=== PATIENT | male | born 1990 | race Caucasian/White ===

== ENCOUNTER 2017-01-13 14:33 | Emergency (ER) | payer SELFPAY ==
[~2017-01-13] VITALS: Ht 190.5 cm; Wt 63.0 kg
[~2017-01-13 14:33] MED LIST: ALUM5LIQ PO; HYDR-3533 PO; PRIL20TA2 PO
[2017-01-13 14:42] VITALS: BP 154/85; PULSE 95; RESP 16; TEMP 98.9; O2SAT 95
[2017-01-13] MEDS ORDERED: BACT800T5 PO (15:16)
[2017-01-13] MEDS ORDERED: CEPH-460 PO (15:16)
--- NOTE | 2017-01-13 15:17 | PD ---
HPI Chief Complaint: Skin Problem Time Seen by Provider: 14:53 Travel History International Travel<30 days: No Contact w/Intl Traveler<30days: No Traveled to known affect area: No History of Present Illness HPI 26-year-old male here for evaluation of 3 painful sores on his left lower extremity 3 days. He reports the areas are becoming increasingly more painful and red prompting his visit today. He denies fever or chills. He cannot recall an injury or insect bites to the area. Symptom severity is moderate. No alleviating factors. PFSH Past Medical History Medical History: Denies Significant Hx Diminished Hearing: No Gastrointestinal Disorders: Yes (GASTRITIS) Immunizations Current: Yes Past Surgical History Surgical History: No Previous Surgery Social History Alcohol Use: Yes (RARELY) Tobacco Use: Yes (1ppd) Substance Use: Yes (OCC MARIJUANA) Allergies-Medications (Allergen,Severity, Reaction): Coded Allergies: No Known Allergies (Verified Adverse Reaction, Unknown, 01/13/17) Reported Meds & Prescriptions Reported Meds & Active Scripts Active No Active Prescriptions or Reported Medications Review of Systems Except as stated in HPI: all other systems reviewed are Neg General / Constitutional: No: Fever Physical Exam Narrative GENERAL: Well-nourished, well-developed patient. SKIN: Focused skin assessment warm/dry. 3 slightly raised and indurated lesions to the left lateral aspect of the lower extremity. The areas are erythematous with central scabs there is no active drainage. No lymphangitis HEAD: Normocephalic. CARDIOVASCULAR: Regular rate and rhythm without murmurs, gallops, or rubs. RESPIRATORY: Breath sounds equal bilaterally. No accessory muscle use. GASTROINTESTINAL: Abdomen soft, non-tender, nondistended. MUSCULOSKELETAL: No cyanosis, or edema. Data Data Last Documented VS Vital Signs Date Time Temp Pulse Resp B/P (MAP) Pulse Ox O2 Delivery O2 Flow Rate FiO2 01/13/17 14:42 98.9 95 16 154/85 (108) 95 MDM Medical Decision Making Medical Screen Exam Complete: Yes Emergency Medical Condition: Yes Differential Diagnosis Abscess, cellulitis, infected insect bites Narrative Course 26 year male here for evaluation of 3 painful erythematous, indurated, non- fluctuance lesions to his left lower extremity. He is nontoxic appearing. He is afebrile. Patient will be treated with Bactrim and Keflex instructed to apply warm compresses and follow up PCP. Diagnosis Primary Impression: Abscess Referrals: [facility] Additional Instructions: Take the antibiotics as prescribed. Wash the area daily with soap and water. Apply warm compresses. Return to emergency department if he developed new or worsening symptoms Scripts Cephalexin (Keflex) 500 Mg Cap 500 MG PO Q6H for Infection, #10 CAP 0 Refills Prov: Lizette Puga 01/13/17 Sulfamethoxazole-Trimethoprim (Bactrim DS) 800-160 Mg Tab 1 TAB PO BID for Infection, #20 TAB 0 Refills Prov: Lizette Puga 01/13/17 Disposition: 01 DISCHARGE HOME Condition: Stable Lizette Puga Jan 13, 2017 15:17
== END 2017-01-13 15:26 | disposition home or self-care (01) ==
LOC: PHED 14:33 → PHEFT 15:26
DX: L02.416 Cutaneous abscess of left lower limb (principal); F17.210 Nicotine dependence, cigarettes, uncomplicated; F12.90 Cannabis use, unspecified, uncomplicated
CPT/HCPCS: 99284

== ENCOUNTER 2017-01-18 18:14 | Emergency (ER) | payer SELFPAY ==
[~2017-01-18] VITALS: Ht 190.5 cm; Wt 62.7 kg
[~2017-01-18 18:14] MED LIST changes: -ALUM5LIQ PO; +BACT800T5 PO; +CEPH-460 PO; -HYDR-3533 PO; -PRIL20TA2 PO
[2017-01-18 18:18] VITALS: BP 133/84; PULSE 76; RESP 18; TEMP 98; O2SAT 99
[2017-01-18] MEDS ORDERED: SODIUM CHLOR 0.9% 1000 ML INJ 1,000 ML IV SCH (18:52)
[2017-01-18] MEDS ORDERED: EPINEPHrine HCL (1:1000) 1 MG/ML VIAL IM ONE (19:00)
[2017-01-18] MEDS ORDERED: methylPREDNISolone SOD SUCC 125 MG/2 ML VIAL IV PUSH ONE (19:00)
[2017-01-18] MEDS ORDERED: FAMOTIDINE 20 MG/2 ML VIAL IV PUSH ONE (19:00)
[2017-01-18] MEDS ORDERED: diphenhydrAMINE HCL 50 MG/ML VIAL IVP ONE (19:00)
--- NOTE | 2017-01-18 19:08 | PD ---
HPI Chief Complaint: reaction to medication Time Seen by Provider: 18:52 Travel History International Travel<30 days: No Contact w/Intl Traveler<30days: No Traveled to known affect area: No History of Present Illness HPI 26yo M presents to the ED with c/o lip and throat swelling for 2 days. Pt was seen on 01/13/17 for left leg infection and given keflex and bactrim. Said he last took bactrim yesterday. Did not take it today. Said the left infection has improved and the leg pain has improved. Said he felt sob prior to coming. No longer sob now. Some nausea. Denies any chest pain, vomiting, abdominal pain, focal weakness or numbness. PFSH Past Medical History Medical History: Denies Significant Hx Diminished Hearing: No Gastrointestinal Disorders: Yes (GASTRITIS) Immunizations Current: Yes Influenza Vaccination: No Past Surgical History Surgical History: No Previous Surgery Social History Alcohol Use: Yes (RARELY) Tobacco Use: Yes (1ppd) Substance Use: Yes (OCC MARIJUANA) Allergies-Medications (Allergen,Severity, Reaction): Coded Allergies: No Known Allergies (Verified Adverse Reaction, Unknown, 01/18/17) Reported Meds & Prescriptions Reported Meds & Active Scripts Active Doxycycline Hyclate 100 Mg Cap 100 Mg PO BID Bactrim DS (Sulfamethoxazole-Trimethoprim) 800-160 Mg Tab 1 Tab PO BID Review of Systems Except as stated in HPI: all other systems reviewed are Neg Physical Exam Narrative GENERAL: 26yo M not in distress. SKIN: No urticaria. HEAD: Atraumatic. Normocephalic. EYES: Pupils equal and round. No scleral icterus. No injection or drainage. ENT: Throat: Uvula midline, no edema. No lip swelling. NECK: Trachea midline. No JVD. CARDIOVASCULAR: Regular rate and rhythm. No murmur appreciated. RESPIRATORY: No accessory muscle use. Clear to auscultation. Breath sounds equal bilaterally. GASTROINTESTINAL: Abdomen soft, non-tender, nondistended. No rebound tenderness or guarding. MUSCULOSKELETAL: LLE: 3 erythematous abscess, 2 is fluctuant and the one in the back has already drained. NEUROLOGICAL: Awake and alert. No obvious cranial nerve deficits. Motor grossly within normal limits. Normal speech. PSYCHIATRIC: Appropriate mood and affect; insight and judgment normal. Data Data Last Documented VS Vital Signs Date Time Temp Pulse Resp B/P (MAP) Pulse Ox O2 Delivery O2 Flow Rate FiO2 01/18/17 20:23 71 16 122/67 (85) 99 01/18/17 18:40 Room Air 01/18/17 18:18 98.0 Orders Orders Ecg Monitoring (01/18/17 18:52) Iv Access Insert/Monitor (01/18/17 18:52) Diphenhydramine Inj (Benadryl Inj) (01/18/17 19:00) Methylprednisolone So Succ Inj (Solumedr (01/18/17 19:00) Famotidine Inj (Pepcid Inj) (01/18/17 19:00) Sodium Chlor 0.9% 1000 Ml Inj (Ns 1000 M (01/18/17 18:52) Epinephrine (1:1000) Inj (Adrenalin (1:1 (01/18/17 19:00) Ed Discharge Order (01/18/17 20:08) MDM Medical Decision Making Medical Screen Exam Complete: Yes Emergency Medical Condition: Yes Differential Diagnosis Allergic reaction vs. medication side effects Narrative Course 26yo M with complaint of lip and throat swelling for 2 days. Do not see it on physical exam but pt feels like lip is more swollen. Patent airway. Lungs are clear. Never took bactrim before. Has had keflex before. Pt is refusing epinephrine. Will give methylprednisolone, diphenhydramine and famotidine. I asked my PA to do I&D on the 2 abscesses. Pt seen at end of my shift so will sign out to next team to reevaluate. Diagnosis Primary Impression: Allergic reaction Qualified Codes: T78.40XA - Allergy, unspecified, initial encounter Scripts Doxycycline Hyclate (Doxycycline Hyclate) 100 Mg Cap 100 MG PO BID for Infection, #20 CAP 0 Refills Prov: Pedro Gabriel MD 01/18/17 Lara Rice DO Jan 18, 2017 19:08
--- NOTE | 2017-01-18 19:31 | PD ---
Physical Exam Time Seen by Provider: 19:05 Narrative I was asked by my attending Dr. LOPEZ to performed incision and drainage of patient's abscesses. Data Data Last Documented VS Vital Signs Date Time Temp Pulse Resp B/P (MAP) Pulse Ox O2 Delivery O2 Flow Rate FiO2 01/18/17 18:40 Room Air 01/18/17 18:18 98.0 76 18 133/84 (100) 99 Orders Orders Ecg Monitoring (01/18/17 18:52) Iv Access Insert/Monitor (01/18/17 18:52) Diphenhydramine Inj (Benadryl Inj) (01/18/17 19:00) Methylprednisolone So Succ Inj (Solumedr (01/18/17 19:00) Famotidine Inj (Pepcid Inj) (01/18/17 19:00) Sodium Chlor 0.9% 1000 Ml Inj (Ns 1000 M (01/18/17 18:52) Epinephrine (1:1000) Inj (Adrenalin (1:1 (01/18/17 19:00) MDM Supervised Visit with ANALY: Yes Procedures Procedure Narrative INCISION AND DRAINAGE OF 2 ABSCESS: The area was prepped and was sterilely draped. A subcutaneous wheal of 1 % Xylocaine with epi with a total number 1 mL was used to anesthetize the area properly. A number 11 scalpel was used to make a 0.5 -cm incision across the area of the abscess. The abscess was drained , complex loculations were broken down, and irrigated with normal saline. Diagnosis Primary Impression: Allergic reaction Qualified Codes: T78.40XA - Allergy, unspecified, initial encounter Lizette Puga Jan 18, 2017 19:31
[2017-01-18] MEDS ORDERED: DOXY100C PO (20:05)
--- NOTE | 2017-01-18 20:05 | PD ---
Physical Exam Time Seen by Provider: 19:[address] Rice with this patient with me to check and see if he developed any lip swelling. Data Data Last Documented VS Vital Signs Date Time Temp Pulse Resp B/P (MAP) Pulse Ox O2 Delivery O2 Flow Rate FiO2 01/18/17 18:40 Room Air 01/18/17 18:18 98.0 76 18 133/84 (100) 99 Orders Orders Ecg Monitoring (01/18/17 18:52) Iv Access Insert/Monitor (01/18/17 18:52) Diphenhydramine Inj (Benadryl Inj) (01/18/17 19:00) Methylprednisolone So Succ Inj (Solumedr (01/18/17 19:00) Famotidine Inj (Pepcid Inj) (01/18/17 19:00) Sodium Chlor 0.9% 1000 Ml Inj (Ns 1000 M (01/18/17 18:52) Epinephrine (1:1000) Inj (Adrenalin (1:1 (01/18/17 19:00) MDM Medical Record Reviewed: Yes Supervised Visit with ANALY: Yes Differential Diagnosis Abscess left leg, cellulitis, allergic reaction to Septra, infection getting better, infection getting worse Narrative Course The patient states the infection is definitely getting better. I cannot see any lip swelling however the patient can feel it and, because of this, it likely exists. The patient likely does have an allergic reaction to Bactrim. He is given a prescription for doxycycline in case his infection is not getting better. The patient states his infection is definitely getting better and is unlikely to purchase the doxycycline. He is told to elevate the leg above his heart and use a heating pad or warm compresses. A heating pad should return on its lowest setting and interposing a towel between his skin and the pad. Diagnosis Primary Impression: Allergic reaction Qualified Codes: T78.40XA - Allergy, unspecified, initial encounter Additional Impressions: Encounter for incision and drainage procedure Cellulitis and abscess of leg Additional Instruction: As we discussed, elevate your leg above the heart and use a heating pad on its lowest setting an interposed a towel between your skin and the pad. Warmth is useful but hot is not more beneficial and can bring the skin. Med/Other Pt SpecificInfo: Prescription(s) given Scripts Doxycycline Hyclate (Doxycycline Hyclate) 100 Mg Cap 100 MG PO BID for Infection, #20 CAP 0 Refills Prov: Pedro Gabriel MD 01/18/17 Disposition: 01 DISCHARGE HOME Condition: Stable Pedro Gabriel MD Jan 18, 2017 20:05
[2017-01-18 20:23] VITALS: BP 122/67
== END 2017-01-18 20:26 | disposition home or self-care (01) ==
LOC: PHED 18:14
DX: T78.40XA Allergy, unspecified, initial encounter (principal); L03.116 Cellulitis of left lower limb; F17.210 Nicotine dependence, cigarettes, uncomplicated; Z79.899 Other long term (current) drug therapy
CPT/HCPCS: 10061; 96361; 96374; 96375; 99284; J1200; J2930; J7030